=== PATIENT | male | born 1975 | race Caucasian/White ===

== ENCOUNTER 2018-06-16 15:52 | Emergency (ER) | payer MEDICARE, SELFPAY ==
[2018-06-16 15:54] VITALS: BP 129/83; PULSE 60; RESP 12; TEMP 36.4; O2SAT 100; BMI 26.8
--- NOTE | 2018-06-16 16:00 | RAD_ITS ---
STUDY: X-RAY CHEST REASON FOR EXAM: Male, 43 years old. Fall TECHNIQUE: Frontal view of the chest COMPARISON: None. FINDINGS: The lungs are clear. There are no pleural effusions. There is no pneumothorax. The heart is normal in size. The visualized osseous structures are within normal limits. RAD/Chest 1 View (Portable) IMPRESSION: No acute thoracic pathology. Electronically Signed: Wagner Barbosa, at 17:59 EST Tel , Service support ,
--- NOTE | 2018-06-16 16:00 | CT_ITS ---
STUDY: CT BRAIN WITHOUT CONTRAST REASON FOR EXAM: Male, 43 years old. Dizziness RADIATION DOSAGE (If Supplied By Facility): CTDIvol = ( 44.99 ) mGy, DLP = ( 880.47 ) mGycm TECHNIQUE: Transaxial CT imaging of the brain was performed without administration of intravenous contrast material. Individualized dose optimization techniques were used for this CT. COMPARISON: None. FINDINGS: There is no acute bleed or infarct. There are normal white matter tracts. The ventricles are normal in configuration. There is no hydrocephalus. The visualized paranasal sinuses are clear. The mastoid air cells are well aerated. There is no skull fracture. CT/Brain/Head without Contrast IMPRESSION: No acute intracranial abnormality. Electronically Signed: Wagner Barbosa, at 17:38 EST Tel , Service support ,
--- NOTE | 2018-06-16 16:00 | RAD_ITS ---
STUDY: X-RAY - PELVIS REASON FOR EXAM: Male, 43 years old. Fall TECHNIQUE: One view of the pelvis was obtained. COMPARISON: None. FINDINGS: There is no evidence of fracture or dislocation. There are no significant degenerative changes. There are no radiodense foreign bodies. RAD/Pelvis 1 or 2 Views IMPRESSION: No fracture or dislocation. Electronically Signed: Wagner Barbosa, at 17:58 EST Tel , Service support ,
--- NOTE | 2018-06-16 16:00 | CT_ITS ---
STUDY: CT CERVICAL SPINE WITHOUT CONTRAST REASON FOR EXAM: Male, 43 years old. Fall RADIATION DOSAGE (If Supplied By Facility): CTDIvol = ( 26.51 ) mGy, DLP = ( 571.04 ) mGycm TECHNIQUE: High resolution transaxial imaging was performed without contrast material. Sagittal and coronal images were reconstructed. Individualized dose optimization techniques were used for this CT. COMPARISON: None available. FINDINGS: There is no evidence of fracture or dislocation in the cervical spine. The dens is intact. Alignment is normal. The vertebral body heights are well-maintained. There are mild degenerative changes. The visualized paraspinal soft tissues are within normal limits. CT/Spine Cervical without Contras IMPRESSION: No fracture or dislocation in the cervical spine. Mild degenerative changes. Electronically Signed: Wagner Barbosa, at 17:49 EST Tel , Service support ,
--- NOTE | 2018-06-16 16:01 | EKG12_ITS ---
Test Reason : UNRESPONSIVE Blood Pressure : / mmHG Vent. Rate : 054 BPM Atrial Rate : 054 BPM P-R Int : 176 ms QRS Dur : 086 ms QT Int : 446 ms P-R-T Axes : 042 004 014 degrees QTc Int : 422 ms Sinus bradycardia Otherwise normal ECG Confirmed by MARGARET ORLANDO, SAM ([id number]), editor greeting card ELI RENEE ([id number]) on 06/19/2018 2:28:36 PM Referred By: THEODORA Confirmed By:SAM ROBLES MD
[2018-06-16 17:06] LABS: Absolute Lymphocyte Count 1.47 X10^3/ul (0.83-4.51); Absolute Neutrophil Count 3.1 X10^3/uL (2.0-7.7); Basophil# 0.03 X10^3/uL; Basophil% 0.5 % (0-1); Eosinophil# 0.34 X10^3/uL; Eosinophils% 6.1 % (0-5); Hematocrit 43.8 % (40-54); Lymphocyte # 1.47 X10^3/ul (4.0); Lymphocyte % 26.3 % (19-41); Mean Corp Hgb Conc 34.2 g/gl (32-36); Mean Corpuscular Hgb 33.3 pg (27.0-32.0); Mean Corpuscular Volume 97.1 fL (80-94); Mean Platelet Vol. 8.6 fl (6.2-12.0); Monocyte% 12.5 % (0-10); Neutrophil # 3.05 X10^3/uL (2.7-7.7); Neutrophil % 54.4 % (47-70); POSITIVE COUNT NO; POSITIVE DIFFERENTIAL NO; POSITIVE MORPHOLOGY NO; Platelet Count 192 K/mm3 (150-450); RBC Distribution Width CV 12.8 % (11.6-14.6); RBC Distribution Width SD 45.2 fl (35.1-43.9); Red Blood Count 4.51 M/mm3 (4.6-6.2); White Blood Count 5.6 K/mm3 (4.4-11.0)
[2018-06-16] MEDS: Diphth,Pertuss(Acell),Tet Vac 0.5 ML Vial IM (17:13)
[2018-06-16] MEDS: 0.9% Normal Saline 1,000 ML 1000 ML IV (17:14)
[2018-06-16 17:24] LABS: Prothrombin Time (Protime)PT. 13.3 SECONDS (11.7-14.9)
[2018-06-16 17:25] VITALS: BP 119/84; PULSE 62; RESP 20; O2SAT 98
[2018-06-16 17:25] LABS: Partial Thromboplast Time 28.1 Seconds (24.1-36.2)
[2018-06-16 17:37] LABS: ALB/GLOB Ratio 1.1 RATIO (0.9-2.4); AST(SGOT) 37 U/L (15-37); Alanine Aminotransfer ALT/SGPT 34 U/L (16-61); Albumin, Serum 3.8 g/dL (3.2-5.0); Alkaline Phosphatase 72 U/L (45-117); Anion Gap 9 (5-15); BUN 11 mg/dL (7-18); BUN/Creat Ratio 9.9 RATIO (10-20); Calcium,Total 8.3 mg/dL (8.5-10.1); Chloride 102 mmol/L (98-107); Creatinine, Serum 1.11 mg/dL (0.70-1.30); EST Glomerular Filtration Rate 77 mL/min (>60); Est Glom Filt Rate - Afr Amer 93 mL/min (>60); Estimated Creatinine Clearance 93.21 ml/min; Globulin 3.4 g/dL (2.2-4.2); Glucose 86 mg/dL (74-106); Lipase 175 U/L (73-393); Potassium 3.9 mmol/L (3.5-5.1); Protein, Total 7.2 g/dL (6.4-8.2); Sodium Level 135 mmol/L (136-145)
[2018-06-16] MEDS: Ketorolac 15 MG/ML Vial IV (18:37)
--- NOTE | 2018-06-16 18:45 | ED.VISSUMM ---
- ER Visit Summary Date of Service: 06/16/18 Chief Complaint: Fall History of Present Illness: The patient is a 43 M here by EMS after a fall. The patient had been drinking today. He had 6 of 12 ounce beers plus 6 tallboys. He was also using marijuana today. He fell forward and hit his head on a table. He sustained a laceration to his left eyebrow. He briefly lost consciousness. EMS was called. He was minimally responsive. They tried Narcan, but had no response. He had no other changes in route to the ED. On arrival, he is complaining of a headache. He denies any other pain or symptoms. He has a history of alcoholism and pancreatitis. Also a history of splenectomy. Smoker. Uses marijuana. Denies any other drug use. Physical Examination: Afebrile and vital signs unremarkable. The patient is alert to verbal stimuli. He will follow commands and he is able to speak some. Head is atraumatic except for a 2 cm laceration at his left eyebrow. Neck is nontender. Maintained in spinal precautions. Heart regular. Lungs clear. Abdomen soft and nontender. Back is nontender. Extremities atraumatic and nontender. Good strength and sensation. Neurovascularly intact. Test Results: CT brain and C-spine showed no acute findings. Chest x-ray and pelvis x-ray were normal. EKG showed sinus rhythm at a rate of 54. Troponin normal. Blood counts, metabolic panel, lipase, coags normal. Alcohol level 164. Emergency Department Course and Treatment: Patient was seen immediately. Evaluated for intoxication, trauma, and possible syncope. His workup here was unremarkable. He remained hemo-dynamically stable. He complained of a headache but had no other pains or symptoms. No vomiting. We were able to clear his c-collar. He was able to ambulate without difficulty or assistance. He was treated with Toradol. We updated his tetanus status. Dr. Tomlinson sutured his facial laceration. 5 sutures placed. Patient tolerated this well. Follow-up in a week for removal. Return for any new or worsening issues. Treatment Plan: As above Disposition: Discharge Impression: 1. Fall 2. Concussion 3. Alcohol use 4. Face laceration 2 cm This note was generated with [employer] dictation software. It may contain incorrect words, spelling, and punctuation that were not noted in review of the chart prior to signing ED Disposition - Plan for ED Patient: Chief Complaint: Fall Referrals: Evan Hilario MD [Primary Care Provider] -
--- NOTE | 2018-06-16 18:50 | ED.DCSUM_ITS ---
- ER Visit Summary Date of Service: 06/16/18 Chief Complaint: Fall History of Present Illness: The patient is a 43 M here by EMS after a fall. The patient had been drinking today. He had 6 of 12 ounce beers plus 6 tallboys. He was also using marijuana today. He fell forward and hit his head on a table. He sustained a laceration to his left eyebrow. He briefly lost consciousness. EMS was called. He was minimally responsive. They tried Narcan, but had no response. He had no other changes in route to the ED. On arrival, he is complaining of a headache. He denies any other pain or symptoms. He has a history of alcoholism and pancreatitis. Also a history of splenectomy. Smoker. Uses marijuana. Denies any other drug use. Physical Examination: Afebrile and vital signs unremarkable. The patient is alert to verbal stimuli. He will follow commands and he is able to speak some. Head is atraumatic except for a 2 cm laceration at his left eyebrow. Neck is nontender. Maintained in spinal precautions. Heart regular. Lungs clear. Abdomen soft and nontender. Back is nontender. Extremities atraumatic and nontender. Good strength and sensation. Neurovascularly intact. Test Results: CT brain and C-spine showed no acute findings. Chest x-ray and pelvis x-ray were normal. EKG showed sinus rhythm at a rate of 54. Troponin normal. Blood counts, metabolic panel, lipase, coags normal. Alcohol level 164. Emergency Department Course and Treatment: Patient was seen immediately. Evaluated for intoxication, trauma, and possible syncope. His workup here was unremarkable. He remained hemo-dynamically stable. He complained of a headache but had no other pains or symptoms. No vomiting. We were able to clear his c- collar. He was able to ambulate without difficulty or assistance. He was treated with Toradol. We updated his tetanus status. Dr. Tomlinson sutured his facial laceration. 5 sutures placed. Patient tolerated this well. Follow-up in a week for removal. Return for any new or worsening issues. Treatment Plan: As above Disposition: Discharge Impression: 1. Fall 2. Concussion 3. Alcohol use 4. Face laceration 2 cm This note was generated with [employer] dictation software. It may contain incorrect words, spelling, and punctuation that were not noted in review of the chart prior to signing ED Disposition - Plan for ED Patient: Chief Complaint: Fall Referrals: Evan Hilario MD [Primary Care Provider] -
--- NOTE | 2018-06-16 18:50 | ED.DEP ---
ED Disposition - Plan for ED Patient: Chief Complaint: Fall Instructions: ED Fall Uncertain Cause, ED Laceration All Referrals: Evan Hilario MD [Primary Care Provider] - 7 Days for suture removal
== END 2018-06-16 18:56 | disposition home or self-care (01) ==
PROVIDERS: Emergency Provider Emergency Medicine; Family Provider Family Medicine; PCP Family Medicine
DX: S06.0X9A Concussion with loss of consciousness of unspecified duration, initial encounter (principal); S01.112A Laceration without foreign body of left eyelid and periocular area, initial encounter; W19.XXXA Unspecified fall, initial encounter; Y93.89 Activity, other specified; K85.90 Acute pancreatitis without necrosis or infection, unspecified; F12.90 Cannabis use, unspecified, uncomplicated; F17.200 Nicotine dependence, unspecified, uncomplicated; Z72.89 Other problems related to lifestyle; Z79.899 Other long term (current) drug therapy
CPT/HCPCS: 12011; 36415; 70450; 71045; 72125; 72170; 80053; 80320; 83690; 84484; 85025; 85610; 85730; 90471; 90715; 93005; 96361; 96374; 99285; J7030; A4216; G0480

== ENCOUNTER 2021-03-01 16:25 | Inpatient (IN) | payer OTHER, MEDICARE, SELFPAY ==
[2021-03-01 16:26] VITALS: BP 142/85; PULSE 122; RESP 16; TEMP 36.7; O2SAT 96; BMI 24.5
[2021-03-01 18:48] VITALS: BP 180/74; PULSE 94; RESP 16; TEMP 36.6; O2SAT 98
[2021-03-01] MEDS: Phenobarbital 32.4 MG Tablet 97.2 MG PO (18:54)
[2021-03-01 19:02] LABS: Absolute Lymphocyte Count 1.62 X10^3/uL (0.83-4.51); Absolute Neutrophil Count 2.2 X10^3/uL (2.0-7.7); Basophil# 0.03 X10^3/uL; Basophil% 0.6 % (0-1); Eosinophil# 0.17 X10^3/uL; Eosinophils% 3.5 % (0-5); Hematocrit 45.8 % (40-54); Hemoglobin 15.9 g/dL (13.0-16.5); Lymphocyte # 1.62 X10^3/ul (0.83-4.51); Lymphocyte % 33.4 % (19-41); Mean Corp Hgb Conc 34.7 g/dL (32-36); Mean Corpuscular Hgb 34.5 pg (27.0-32.0); Mean Corpuscular Volume 99.3 fL (80-94); Mean Platelet Vol. 8.8 fl (6.2-12.0); Monocyte# 0.79 X10^3/uL; Monocyte% 16.3 % (0-10); NRBC Flagged by Analyzer 0 % (0-5); Neutrophil # 2.23 X10^3/uL (2.7-7.7); Platelet Count 229 K/mm3 (150-450); RBC Distribution Width CV 12.7 % (11.6-14.6); RBC Distribution Width SD 46.6 fl (35.1-43.9); Red Blood Count 4.61 M/mm3 (4.6-6.2); White Blood Count 4.9 K/mm3 (4.4-11.0)
[2021-03-01 19:26] LABS: ALB/GLOB Ratio 1.1 RATIO (0.9-2.4); AST(SGOT) 71 U/L (15-37); Alanine Aminotransfer ALT/SGPT 51 U/L (16-61); Albumin, Serum 3.9 g/dL (3.2-5.0); Alkaline Phosphatase 74 U/L (45-117); Anion Gap 10 (5-15); BUN 7 mg/dL (7-18); BUN/Creat Ratio 5.6 RATIO (10-20); Calcium,Total 9.3 mg/dL (8.5-10.1); Chloride 102 mmol/L (98-107); Creatinine, Serum 1.25 mg/dL (0.70-1.30); EST Glomerular Filtration Rate 66 mL/min (>60); Est Glom Filt Rate - Afr Amer 80 mL/min (>60); Estimated Creatinine Clearance 83.45 ml/min; Globulin 3.6 g/dL (2.2-4.2); Glucose 89 mg/dL (74-106); Potassium 3.4 mmol/L (3.5-5.1); Protein, Total 7.5 g/dL (6.4-8.2); Sodium Level 139 mmol/L (136-145)
[2021-03-01 19:34] LABS: Amphetamine Urine VISTA NEGATIVE (<1000 ng/mL); Barbiturate Urine VISTA NEGATIVE (< 200 ng/mL); Benzodiazepine Urine VISTA NEGATIVE (< 200 ng/mL); Cocaine Urine VISTA NEGATIVE (< 300 ng/mL); Ecstacy Urine VISTA NEGATIVE (< 500 ng/mL); Methadone Urine VISTA NEGATIVE (< 300 ng/mL); PCP Urine VISTA NEGATIVE (< 25 ng/mL); THC Urine VISTA POSITIVE (< 50 ng/mL); Vista UDS pH Range 6
--- NOTE | 2021-03-01 19:35 | CM.ED ---
ALDAIR Note Referral Source: BENNIE CH Referral Reason: RAMP ALDAIR met with patient. He voiced that he has been drinking alot of alcohol. Patient reports drinking over a case a day.. more lately and smoking marijuana a couple times per week. Patient reports smoking 2 joints a week. Patient last smoked marijuana at 7am and began to use alcohol at 6am this morning when the [employer] sold it. Patient is in agreement with the RAMP program. SW explained that Addiction Counselor/Therapist would follow up with patient tomorrow. ALDAIR called More at [facility]. Made referral regarding patient being admitted to RAMP program. Plan: RAMP program Rachael SMITH
--- NOTE | 2021-03-01 19:39 | EDS_ITS ---
HPI History of Present Illness Chief Complaint: ETOH Intox Narrative Narrative: Patient presenting for evaluation secondary to alcohol dependence and requesting detox. Patient states that he has been in touch with [facility], and they told him that he likely would need to go through a detox program. Patient states that he has had a longstanding issue with alcohol dependency. Patient states that he typically will drink around a case of beer a day, towards the end of the day states that he will get significantly tremulous before he starts drinking again. Patient denies that he had withdrawal seizures. Denies being suicidal or homicidal. Patient does state that he uses marijuana, denies any other illicit substance use. Review of systems otherwise negative. PFSH PFS Medical History Alcohol abuse Home Medications NK 03/01/21 [History Last Taken Unknown] Allergy/AdvReac Type Severity Reaction Status Date / Time aspirin AdvReac PT HAS NO Verified 03/01/21 16:30 SPLEEN Social History Smoking Status: Current every day smoker tobacco type: cigarettes ROS ROS ED Constitutional Constitutional ED: Denies chills, fever(s) or weight loss Eyes Eyes: Denies change in vision ENT ENT ED: Denies rhinorrhea or sore throat Cardiovascular Cardiovascular: Denies chest pain Respiratory/Chest Respiratory/Chest: Denies cough Gastrointestinal Gastrointestinal: Denies abdominal pain, constipation, diarrhea, nausea or vomiting Genitourinary Genitourinary ED: Denies dysuria Musculoskeletal Musculoskeletal: Denies myalgias Integumentary Denies rash Neurologic Neurologic: Denies paresthesias or weakness Psychiatric Psychiatric: Reports other Details: Alcohol dependence Endocrine Endocrinology: Denies polydipsia or polyuria Hematologic/Lymphatic Hematologic/Lymphatic: Denies easy bleeding or easy bruising Allergic/Immunologic Allergic/Immunologic ED: Denies urticaria EXAM Physical Exam Const Vital Signs: 03/01/21 16:26 03/01/21 18:48 Temperature 98.1 F 97.9 F Temperature Source Temporal Temporal Pulse Rate 122 H 94 Respiratory Rate 16 16 Blood Pressure 142/85 H 180/74 H Blood Pressure Mean 104 109 Blood Pressure Source Monitor Blood Pressure Location Right Arm Pulse Ox 96 98 Oxygen Delivery Method Room Air Room Air Positive well nourished and well developed General Appearance ED: well developed and NAD HEENT atraumatic; Negative for tenderness Eyes EOMs intact bilaterally General Eye ED: Negative for pale conjunctiva or scleral icterus Neck no lymphadenopathy and supple Chest Wall inspection of chest normal Resp normal respiratory effort and clear to auscultation bilaterally Cardio regular rate, regular rhythm, no murmurs and peripheral pulses 2+ throughout GI soft to palpation, non-tender, non-distended and no masses Extremity General Extremety ED: Negative for edema or tenderness General Extremity: Negative for edema Neuro oriented x3 and no sensory deficits noted Sensorium / Orientation: alert Motor Exam: strength 5/5 throughout Psych mental status grossly normal Psych Narrative: No suicidal homicidal ideations, no signs of hallucinations Skin Lesions: no lesions Rashes: no rashes MDM MDM MDM Narrative Medical decision making narrative: Patient presented secondary to alcohol dependence. He was given phenobarb in the emergency department. Alcohol was found to be just over 100, patient screening labs were found to be grossly unremarkable. Toxicology screen was only positive for cannabinoids. Will discuss patient with the hospitalist for admission for alcohol detox. Lab Data Labs: Laboratory Results - last 24 hr 03/01/21 03/01/21 03/01/21 18:35 18:45 18:45 WBC 4.9 RBC 4.61 Hgb 15.9 Hct 45.8 MCV 99.3 H MCH 34.5 H MCHC 34.7 RDW Std Deviation 46.6 H RDW Coeff of Minerva 12.7 Plt Count 229 MPV 8.8 Immature Gran % (Auto) 0.200 Neut % (Auto) 46.0 L Lymph % (Auto) 33.4 Wallace % (Auto) 16.3 H Eos % (Auto) 3.5 Baso % (Auto) 0.6 Absolute Neuts (auto) 2.2 Absolute Lymphs (auto) 1.62 Nucleated RBC % 0 Sodium 139 Potassium 3.4 L Chloride 102 Carbon Dioxide 27.0 Anion Gap 10 BUN 7 Creatinine 1.25 Estim Creat Clear Calc 83.45 Est GFR (MDRD) Af Amer 80 Est GFR (MDRD) Non-Af 66 BUN/Creatinine Ratio 5.6 L Glucose 89 Calcium 9.3 Total Bilirubin 1.20 H AST 71 H ALT 51 Alkaline Phosphatase 74 Total Protein 7.5 Albumin 3.9 Globulin 3.6 Albumin/Globulin Ratio 1.1 Urine Opiates Screen NEGATIVE Urine Methadone Screen NEGATIVE Ur Barbiturates Screen NEGATIVE Ur Phencyclidine Scrn NEGATIVE Ur Amphetamines Screen NEGATIVE U Methamphetamin-MDMA NEGATIVE U Benzodiazepines Scrn NEGATIVE Urine Cocaine Screen NEGATIVE U Cannabinoids Screen POSITIVE H Ur Drug Screen Comment Ethyl Alcohol 03/01/21 18:45 WBC RBC Hgb Hct MCV MCH MCHC RDW Std Deviation RDW Coeff of Minerva Plt Count MPV Immature Gran % (Auto) Neut % (Auto) Lymph % (Auto) Wallace % (Auto) Eos % (Auto) Baso % (Auto) Absolute Neuts (auto) Absolute Lymphs (auto) Nucleated RBC % Sodium Potassium Chloride Carbon Dioxide Anion Gap BUN Creatinine Estim Creat Clear Calc Est GFR (MDRD) Af Amer Est GFR (MDRD) Non-Af BUN/Creatinine Ratio Glucose Calcium Total Bilirubin AST ALT Alkaline Phosphatase Total Protein Albumin Globulin Albumin/Globulin Ratio Urine Opiates Screen Urine Methadone Screen Ur Barbiturates Screen Ur Phencyclidine Scrn Ur Amphetamines Screen U Methamphetamin-MDMA U Benzodiazepines Scrn Urine Cocaine Screen U Cannabinoids Screen Ur Drug Screen Comment Ethyl Alcohol 108.0 Discharge Plan Triage Chief Complaint: ETOH Intox ED Provider: Masoud Burris Dx/Rx/DC Orders Clinical Impression: Alcohol dependence Prescriptions: No Action NK RF: 0 Primary Care Provider: Evan Hilario Referrals: Evan Hilario MD [Primary Care Provider] - Disposition Disposition: Acute Care Hospital [facility]
--- NOTE | 2021-03-01 20:02 | HP.PCM.HOS_ITS ---
HPI - General General Date of Admission: 03/01/21 HPI Narrative ADRIA AREVALO, is a 45 M with a significant history of alcoholism; hepatitis C; cirrhosis; and esophageal varices who presents to the emergency department with help with alcohol detoxification. Reportedly patient drinks about a case of beer per day. He called to [facility] and he was referred to the hospital for detoxification. Patient reports that last time he drank was few hours before presentation. He reports withdrawal symptoms of shakiness. He denies any nausea and vomiting and stated typically that follows with his withdrawal. Last time he went to alcohol withdrawal program was about 4 to 5 years ago. [facility] Medical History Alcohol abuse Home Medications NK 03/01/21 [History Last Taken Unknown] Allergy/AdvReac Type Severity Reaction Status Date / Time aspirin AdvReac PT HAS NO Verified 03/01/21 16:30 SPLEEN Family History Other Diabetes Surgical History H/O splenectomy Social History Smoking Status: Unknown if ever smoked substance use type: marijuana ROS ROS Narrative Constitutional: Denies anorexia and change in weight Eyes: Denies blurry vision, change in eye color, change in vision, discharge from eye(s), double vision, erythema, eye pain, loss of vision or other HEENT: Denies abnormal hearing, dysphagia, ear pain, epistaxis, headache(s), hearing loss, nasal congestion, nasal discharge, post nasal drip, sinus press ure, sore throat or other Cardiovascular: Denies chest pain or palpitations. Denies dyspnea on exertion, orthopnea and paroxysmal nocturnal dyspnea Respiratory/Chest: Denies cough, excessive phlegm production, shortness of breath with exertion and wheezing Gastrointestinal: Denies abdominal pain, coffee ground emesis, constipation, diarrhea, dyspepsia, hematemesis, hematochezia, loose stools, melena, nausea, vomiting or other Genitourinary: Denies burning urination, difficulty urinating, dysuria, hematuria, nocturia, urinary frequency, urinary hesitancy, urinary incontinence, urinary urgency or other Musculoskeletal: Denies arthralgias, back pain, joint pain, joint stiffness, joint swelling, myalgias, neck pain or other Neurologic: Reports tremors. Denies abnormal gait, abnormal speech, confusion, disequilibrium, dizziness, focal weakness, headache(s), numbness, paresthesias, seizure-like activity, seizures, syncope, tingling, or other Psychiatric: Reports anxiety. Denies depression, homicidal ideation, suicidal ideation or other Endocrinology: Denies change in body appearance, cold intolerance, excessive sweating, heat intolerance, polydipsia, polyuria or other Hematologic/Lymphatic: Denies anemia, easy bleeding, easy bruising, lymphadenopathy or other Integumentary: Denies rashes Allergic/Immunologic: Denies rhinitis, hives, eczema, asthma or other Vital Signs Vital Signs Vital Signs: 03/01/21 16:26 03/01/21 18:48 Temperature 98.1 F 97.9 F Temperature Source Temporal Temporal Pulse Rate 122 H 94 Respiratory Rate 16 16 Blood Pressure 142/85 H 180/74 H Blood Pressure Mean 104 109 Blood Pressure Source Monitor Blood Pressure Location Right Arm Pulse Ox 96 98 Oxygen Delivery Method Room Air Room Air Weight Weight: 84.368 kg Body Mass Index (BMI) 24.5 Physical Exam Narrative Physical exam: General: Well-nourished, well-developed. Head: Normocephalic, atraumatic, no tenderness Eyes: PERRLA, EOMI ENT, no trauma, moist mucous membranes, no rhinorrhea Neck: Nontender, full range of motion, no spinal tenderness, deformities, step- off CVS: Regular rate and rhythm. S1-S2 present. No murmur, gallop or rub. Respiratory : clear to auscultation bilaterally, chest wall nontender, no wheezing Abdomen: Soft, nontender, nondistended, normal bowel sounds, no masses : Deferred Back: Nontender, no CVA tenderness, no midline spinal tenderness, deformities, step-offs Extremities: Nontender full range of motion, no trauma Skin: Normal color, no trauma, abrasions Neuro: Alert, oriented, cranial nerves II through XII grossly intact. Psychiatry: Normal mood. Normal affect. Not depressed. Not anxious. Results Lab / Micro Data Result Diagrams: 03/01/21 18:45 03/01/21 18:45 Labs: Laboratory Results - last 24 hr 03/01/21 18:35: Urine Opiates Screen NEGATIVE, Urine Methadone Screen NEGATIVE, Ur Barbiturates Screen NEGATIVE, Ur Phencyclidine Scrn NEGATIVE, Ur Amphetamines Screen NEGATIVE, U Methamphetamin-MDMA NEGATIVE, U Benzodiazepines Scrn NEGATIV E, Urine Cocaine Screen NEGATIVE, U Cannabinoids Screen POSITIVE H, Ur Drug S creen Comment 03/01/21 18:45: WBC 4.9, RBC 4.61, Hgb 15.9, Hct 45.8, MCV 99.3 H, MCH 34.5 H, MCHC 34.7, RDW Std Deviation 46.6 H, RDW Coeff of Minerva 12.7, Plt Count 229, MPV 8.8, Immature Gran % (Auto) 0.200, Neut % (Auto) 46.0 L, Lymph % (Auto) 33.4, [place] % (Auto) 16.3 H, Eos % (Auto) 3.5, Baso % (Auto) 0.6, Absolute Neuts (auto) 2.2, Absolute Lymphs (auto) 1.62, Nucleated RBC % 0 03/01/21 18:45: Sodium 139, Potassium 3.4 L, Chloride 102, Carbon Dioxide 27.0, Anion Gap 10, BUN 7, Creatinine 1.25, Estim Creat Clear Calc 83.45, Est GFR (MDRD) Af Amer 80, Est GFR (MDRD) Non-Af 66, BUN/Creatinine Ratio 5.6 L, Glucose 89, Calcium 9.3, Total Bilirubin 1.20 H, AST 71 H, ALT 51, Alkaline Phosphatase 74, Total Protein 7.5, Albumin 3.9, Globulin 3.6, Albumin/Globulin Ratio 1.1 03/01/21 18:45: Ethyl Alcohol 108.0 Assessment & Plan Assessment/Plan (1) Desire for detoxification: (2) Alcoholism: PLAN: Alcohol dependence and desire for detoxification Patient was loaded with phenobarbital at the emergency department. While inpatient will continue phenobarbital. Start other adjunctive medications: Gabapentin as needed; dicyclomine as needed; Vistaril as needed; Imodium as needed; trazodone as needed; Zofran as needed; scheduled thiamine; and schedule folic acid. Monitor CIWA score Marijuana abuse Counselled Hypokalemia Review of medical department labs potassium of 3.4, mild. Check magnesium. Elevated blood pressure a diagnosis of hypertension Trend blood pressures for now. DVT prophylaxis Low risk Encourage to ambulate Charges/Coding Visit Charges Inpatient E&M: 22135 Init Hosp L2
[2021-03-01 20:03] VITALS: BP 122/98; PULSE 93; RESP 16; TEMP 36.9; O2SAT 98
[2021-03-01 20:16] VITALS: BP 122/98; PULSE 93; RESP 16; TEMP 36.9; O2SAT 96
[2021-03-01 20:54] VITALS: BMI 24.3
[2021-03-01 21:04] VITALS: BP 141/88; PULSE 98; RESP 18; TEMP 36.8; O2SAT 94
[2021-03-01] MEDS: traZODone 100 MG Tablet PO (21:25)
[2021-03-01] MEDS: Gabapentin 300 MG Capsule PO (21:25)
[2021-03-01] MEDS: hydrOXYzine PAM 25 MG Capsule 50 MG PO (21:25)
[2021-03-01] MEDS: Phenobarbital 32.4 MG Tablet 64.8 MG PO (22:25)
[2021-03-01 22:48] LABS: Magnesium 2.2 mg/dL (1.6-2.6)
--- NOTE | 2021-03-01 23:31 | PCS.PANDOC ---
PANDEMIC DOCUMENTATION INITIATED: Date: 01/31/2021 Time: 190
[2021-03-02] VITALS (7 sets, daily range): BP systolic 123–130; BP diastolic 79–95; PULSE 74–95; RESP 14–18; TEMP 36.6–36.9; O2SAT 93–98
[2021-03-02] MEDS: Phenobarbital 32.4 MG Tablet 64.8 MG PO ×6 (02:21→22:19)
[2021-03-02] MEDS: Thiamine Hydrochloride 100 MG Tablet PO (06:16)
[2021-03-02] MEDS: Folic Acid 1 MG Tablet PO (06:16)
--- NOTE | 2021-03-02 11:16 | ADDICTION ---
his clinical writer met with PT to conduct ASAM, MSE, AUDIT assessments and to plan for d/c. PT A+Ox4 and participated actively. All assessments completed, faxed to [facility] and placed in PT's chart. PT plans to f/u with residential and counseling services. This worker will work on placement that will accept clients insurance. PT did not indicate a need for transportation post d/c from [facility].
--- NOTE | 2021-03-02 14:09 | PN.HOSP_ITS ---
Subjective Subjective Feels generally ill. Complains of malaise and myalgias and tremors. This is all consistent with his prior history of alcohol withdrawal. Objective Data Objective Data Vital Signs: Vital Signs Temp Pulse Resp BP Pulse Ox 36.9 C 81 16 130/93 H 95 03/02/21 10:34 03/02/21 10:34 03/02/21 10:34 03/02/21 10:34 03/02/21 10:34 Oxygen Delivery Method Room Air Weight: 83.8 kg Body Mass Index (BMI) 24.3 Intake & Output: Intake and Output for Last 24 Hours 02/28/21 03/01/21 03/02/21 23:59 23:59 23:59 Intake Total 360 / 360 Balance 360 / 360 Lab / Micro Data Result Diagrams: 03/01/21 18:45 03/01/21 18:45 Labs: Laboratory Results - last 24 hr 03/01/21 18:35: Urine Opiates Screen NEGATIVE, Urine Methadone Screen NEGATIVE, Ur Barbiturates Screen NEGATIVE, Ur Phencyclidine Scrn NEGATIVE, Ur Amphetamines Screen NEGATIVE, U Methamphetamin-MDMA NEGATIVE, U Benzodiazepines Scrn NEGATIVE, Urine Cocaine Screen NEGATIVE, U Cannabinoids Screen POSITIVE H, Ur Drug Screen Comment 03/01/21 18:45: WBC 4.9, RBC 4.61, Hgb 15.9, Hct 45.8, MCV 99.3 H, MCH 34.5 H, MCHC 34.7, RDW Std Deviation 46.6 H, RDW Coeff of Minerva 12.7, Plt Count 229, MPV 8.8, Immature Gran % (Auto) 0.200, Neut % (Auto) 46.0 L, Lymph % (Auto) 33.4, [place] % (Auto) 16.3 H, Eos % (Auto) 3.5, Baso % (Auto) 0.6, Absolute Neuts (auto) 2.2, Absolute Lymphs (auto) 1.62, Nucleated RBC % 0 03/01/21 18:45: Sodium 139, Potassium 3.4 L, Chloride 102, Carbon Dioxide 27.0, Anion Gap 10, BUN 7, Creatinine 1.25, Estim Creat Clear Calc 83.45, Est GFR (MDRD) Af Amer 80, Est GFR (MDRD) Non-Af 66, BUN/Creatinine Ratio 5.6 L, Glucose 89, Calcium 9.3, Total Bilirubin 1.20 H, AST 71 H, ALT 51, Alkaline Phosphatase 74, Total Protein 7.5, Albumin 3.9, Globulin 3.6, Albumin/Globulin Ratio 1.1 03/01/21 18:45: Ethyl Alcohol 108.0 03/01/21 18:45: Magnesium 2.2 Physical Exam Const alert Resp normal respiratory effort, no retractions, no use of accessory muscles and clear to auscultation bilaterally Cardio regular rate, regular rhythm, S1 normal heart sound and S2 normal heart sound GI normal to inspection, nondistended, normoactive bowel sounds, soft to palpation, non-tender and non-distended Assessment & Plan Assessment/Plan (1) Desire for detoxification: (2) Alcoholism: PLAN: Alcohol dependence and desire for detoxification Patient was loaded with phenobarbital at the emergency department. While inpatient will continue phenobarbital. Start other adjunctive medications: Gabapentin as needed; dicyclomine as needed; Vistaril as needed; Imodium as needed; trazodone as needed; Zofran as needed; scheduled thiamine; and schedule folic acid. Monitor CIWA score Overall, patient stable. No evidence delirium tremens at this time. Marijuana abuse Counselled Ongoing use will complicate the patient's desire for sobriety Hypokalemia Review of medical department labs potassium of 3.4, mild. Check magnesium. Elevated blood pressure a diagnosis of hypertension Trend blood pressures for now. DVT prophylaxis Low risk Encourage to ambulate Charges/Coding Visit Charges Inpatient E&M: 82230 Subs Hosp L2
[2021-03-02] MEDS: traZODone 100 MG Tablet PO (22:19)
[2021-03-03] VITALS (8 sets, daily range): BP systolic 115–134; BP diastolic 82–86; PULSE 65–80; RESP 14–18; TEMP 35.9–36.6; O2SAT 93–98
[2021-03-03] MEDS: Phenobarbital 32.4 MG Tablet 64.8 MG PO ×5 (02:24→21:32)
[2021-03-03] MEDS: Thiamine Hydrochloride 100 MG Tablet PO (06:11)
[2021-03-03] MEDS: Folic Acid 1 MG Tablet PO (06:11)
[2021-03-03] MEDS: Gabapentin 300 MG Capsule PO ×2 (10:40→21:33)
[2021-03-03] MEDS: Dicyclomine 10 MG Capsule 20 MG PO ×2 (10:40→21:35)
--- NOTE | 2021-03-03 13:24 | PCM.PN.HOSP ---
Subjective Subjective Feels better. Walking in halls. walks to keep his mind off alcohol. He wants to follow up with IOP. Objective Data Objective Data Vital Signs: Vital Signs Temp Pulse Resp BP Pulse Ox 35.9 C L 73 18 115/82 H 98 03/03/21 10:37 03/03/21 10:37 03/03/21 10:37 03/03/21 10:37 03/03/21 10:37 Oxygen Delivery Method Room Air Weight: 83.8 kg Body Mass Index (BMI) 24.3 Intake & Output: Intake and Output for Last 24 Hours 03/01/21 03/02/21 03/03/21 23:59 23:59 23:59 Intake Total 360 / 360 Balance 360 / 360 Lab / Micro Data Result Diagrams: 03/01/21 18:45 03/01/21 18:45 Physical Exam Const alert Resp normal respiratory effort, no retractions, no use of accessory muscles and clear to auscultation bilaterally Cardio regular rate, regular rhythm, S1 normal heart sound and S2 normal heart sound GI normal to inspection, nondistended, normoactive bowel sounds, soft to palpation, non-tender and non-distended Extremity normal to inspection Neuro Neuro Narrative: normal gait. Sensorium / Orientation: awake and alert Assessment & Plan Assessment/Plan (1) Desire for detoxification: (2) Alcoholism: PLAN: Alcohol dependence and desire for detoxification Patient was loaded with phenobarbital at the emergency department. While inpatient will continue phenobarbital. Start other adjunctive medications: Gabapentin as needed; dicyclomine as needed; Vistaril as needed; Imodium as needed; trazodone as needed; Zofran as needed; scheduled thiamine; and schedule folic acid. Monitor CIWA score Improving. Given appearance on 03/02, plan to watch overnight, and if improved, then DC home 03/04. Follow up with IOP. Marijuana abuse Counselled Ongoing use will complicate the patient's desire for sobriety Hypokalemia Review of medical department labs potassium of 3.4, mild. Check magnesium. Elevated blood pressure a diagnosis of hypertension Trend blood pressures for now. DVT prophylaxis Low risk Encourage to ambulate Charges/Coding Visit Charges Inpatient E&M: 75862 Subs Hosp L2
[2021-03-03] MEDS: traZODone 100 MG Tablet PO (21:33)
[2021-03-04] MEDS: Phenobarbital 32.4 MG Tablet 64.8 MG PO ×3 (00:04→06:31)
[2021-03-04 03:59] VITALS: BP 104/78; PULSE 59; RESP 16; TEMP 36.1; O2SAT 96
[2021-03-04 08:00] VITALS: BP 119/85; PULSE 76; RESP 18; TEMP 36.7; O2SAT 100
[2021-03-04] MEDS: Thiamine Hydrochloride 100 MG Tablet PO (08:07)
[2021-03-04] MEDS: Folic Acid 1 MG Tablet PO (08:07)
--- NOTE | 2021-03-04 08:35 | PCM.DC ---
Discharge Instructions Diet Discharge Diet: No restrictions Activity Discharge Activity: Return to Normal Activity Follow Up Care Please Follow Up With: [facility] therapy When: next week Test Results: Test results from this visit will be discussed in further detail at your follow-up appointment, if applicable. Discharge Plan Admission Admit Date/Time: 03/01/21 19:57 Primary Reason for Your Visit: alcohol withdrawal Attending Provider: Pablo Maguire Primary Care Provider: Evan Hilario Discharge Orders/Prescriptions Prescriptions: New Advanced Multi EA 22.5 mg-400 mcg -150 mcg-10 mg tablet,chewable 1 tab PO DAILY Qty: 1 RF: 0 Continued epinephrine 0.3 mg/0.3 mL auto-injector 0.3 mg IM X1 RF: 0 Referrals / Follow Up: Evan Hilario MD [Primary Care Provider] - Within 1 Month Disposition Disposition (needs filled in before D/C Order can be placed): Home, Self Care
--- NOTE | 2021-03-04 08:38 | PCM.DC.SUM ---
Providers Date of Admission: 03/01/21 Primary Care Physician: Dr. Evan Hilario MD Reason For Visit: ALCOHOL DEPENDENCE Diagnosis Discharge Diagnosis (1) Desire for detoxification: Status: Acute (2) Alcoholism: Status: Acute Code(s): F10.20 - Alcohol dependence, uncomplicated Medications at Discharge Home Medications epinephrine 0.3 mg IM X1 03/01/21 [id number] [Advanced Multi EA] 1 tab PO DAILY #1 tab 03/04/21 Hospital Course Operations None Procedures None Summary of Care Provided Minutes Spent on Discharge: 24 Hospital Course: 45-year-old male presents for acute alcohol withdrawal. Patient was having tremors, myalgias and malaise. Was very ill the first couple days but then on the was doing much better and was ambulating through the hallways. Patient was observed and had no further decompensation. Patient was treated with phenobarbital. Patient was seen by addiction medicine and the initial plan was for residential program however the patient was not interested in that and will be following up with [facility]. Patient is otherwise doing well and will be discharged. Of note, walked in the patient's room and he was try to get into his zip tied box to get a knife out of there so that he could pop some blisters. I looked at his feet and did have some superficial blisters but no evidence of any infection. I encouraged him not to open those up as this could become infected. Physical Exam Const alert and no apparent distress Skin Skin Narrative: Superficial blisters over the distal midportion of his foot without any erythema or discharge Weight / BMI Weight Weight: 83.8 kg Body Mass Index (BMI) 24.3 ABG / Lab / Microbiology Data Result Diagrams: 03/01/21 18:45 03/01/21 18:45 D/C Instructions Discharge Diet: No restrictions Please Follow Up With: [facility] When: next week Meaningful Use Info Meaningful Use Diagnoses (Choose all that apply): None applicable Discharge Plan Admission Admit Date/Time: 03/01/21 19:57 Primary Reason for Your Visit: alcohol withdrawal Attending Provider: Pablo Maguire Primary Care Provider: Evan Hilario Discharge Orders/Prescriptions Prescriptions: New Advanced Multi EA 22.5 mg-400 mcg -150 mcg-10 mg tablet,chewable 1 tab PO DAILY Qty: 1 RF: 0 Continued epinephrine 0.3 mg/0.3 mL auto-injector 0.3 mg IM X1 RF: 0 Referrals / Follow Up: Evan Hilario MD [Primary Care Provider] - Within 1 Month Disposition Disposition (needs filled in before D/C Order can be placed): Home, Self Care Charges/Coding Visit Charges Inpatient E&M: 71553 Disch Hosp
== END 2021-03-04 11:16 | disposition home or self-care (01) | DRG 897 ==
LOC: ED 19:41 → MS3 20:22
PROVIDERS: Admitting Provider Hospitalist; Emergency Provider Emergency Medicine; PCP Family Medicine
DX: F10.229 Alcohol dependence with intoxication, unspecified (principal); F10.239 Alcohol dependence with withdrawal, unspecified; F17.210 Nicotine dependence, cigarettes, uncomplicated; Y90.5 Blood alcohol level of 100-119 mg/100 ml; Z86.19 Personal history of other infectious and parasitic diseases; F12.10 Cannabis abuse, uncomplicated; I10 Essential (primary) hypertension; E87.6 Hypokalemia; S90.829A Blister (nonthermal), unspecified foot, initial encounter; X58.XXXA Exposure to other specified factors, initial encounter; Y93.9 Activity, unspecified; Y92.9 Unspecified place or not applicable
CPT/HCPCS: 80053; 80307; 82077; 83735; 85025; 99283; A4216

== ENCOUNTER 2023-09-15 16:44 | Emergency (ER) | payer MEDICARE, MEDICAID, SELFPAY ==
[2023-09-15 16:44] VITALS: BP 138/92; PULSE 119; RESP 20; TEMP 36.6; O2SAT 95; BMI 25.5
[2023-09-15 16:46] VITALS: BP 138/92; PULSE 119; RESP 20; TEMP 36.6; O2SAT 95
--- NOTE | 2023-09-15 17:07 | EDS_ITS ---
HPI <CHANDRAKANT Raphael - Last Filed: 09/15/23 20:29> History of Present Illness Chief Complaint: General Illness Narrative Narrative: Patient presenting today due to flulike symptoms he has had over the past week. He reports that he has had a productive cough, diarrhea, body aches, and fatigue. He has had a decreased appetite. He denies abdominal pain, nausea, vomiting, chest pain, and shortness of breath. He reports a past medical history of liver cirrhosis and esophageal varices. PFSH <CHANDRAKANT Raphael - Last Filed: 09/15/23 20:29> [facility] Medical History Alcohol abuse Alcohol dependence Alcoholism Depression Esophageal varices Portal vein thrombosis Home Medications epinephrine 0.3 mg/0.3 mL injection, auto-injector 0.3 mg IM X1 anaphylaxis 03/01/21 [History Last Taken Unknown] mv-mn-iron 22.5 mg-folic ac 400 mcg-vit K 150 [id number] chew tablet (Advanced Multi EA) 1 tab PO DAILY #1 TAB 03/04/21 [Rx Last Taken Unknown] benzonatate 100 mg capsule 200 mg (2 x 100 mg) PO TID PRN PRN Cough #20 CAPSULES 09/15/23 [Rx Last Taken Unknown] ondansetron 4 mg disintegrating tablet 4 mg PO Q8H PRN PRN Nausea #7 tabs 09/15/23 [Rx Last Taken Unknown] Allergy/AdvReac Type Severity Reaction Status Date / Time bee venom protein (honey bee) Allergy Anaphylaxis Verified 09/15/23 16:46 aspirin AdvReac PT HAS NO Verified 09/15/23 16:46 SPLEEN Family History Other Diabetes Surgical History H/O splenectomy Social History Smoking Status: Former smoker substance use type: marijuana ROS <CHANDRAKANT Raphael - Last Filed: 09/15/23 20:29> ROS ED Constitutional Constitutional ED: Reports sweats; Denies chills or fever(s) Cardiovascular Cardiovascular: Denies chest pain or palpitations Respiratory/Chest Respiratory/Chest: Reports cough; Denies dyspnea Gastrointestinal Gastrointestinal: Reports diarrhea; Denies abdominal pain, nausea or vomiting Genitourinary Genitourinary ED: Denies dysuria, hematuria or urinary urgency Musculoskeletal Musculoskeletal: Reports other Details: body aches Integumentary Denies rash Neurologic Neurologic: Denies weakness EXAM <Riya Eduardo PA - Last Filed: 09/15/23 20:29> Physical Exam Const Vital Signs: 09/15/23 16:44 09/15/23 16:52 09/15/23 16:46 Temperature 97.8 F 97.8 F Temperature Source Temporal Temporal Pulse Rate 119 H 119 H Respiratory Rate 20 H 20 H Respiratory Effort Short of Breath Respiratory Pattern Normal Blood Pressure 138/92 H 138/92 H Blood Pressure Mean 107 107 Pulse Ox 95 95 Oxygen Delivery Method Room Air Room Air 09/15/23 18:51 Temperature 97.8 F Temperature Source Pulse Rate 119 H Respiratory Rate 20 H Respiratory Effort Respiratory Pattern Blood Pressure 138/92 H Blood Pressure Mean 107 Pulse Ox 95 Oxygen Delivery Method Positive well nourished, well developed and no apparent distress General Appearance ED: well developed HEENT Reports normocephalic, head/scalp atraumatic and TM's clear Tympanic Membrane ED: Yes TM's clear bilateral Mouth ED: Yes moist mucous membranes normal Throat: posterior oropharynx normal, tonsils normal and uvula midline Eyes PERRL and EOMs intact bilaterally Neck full ROM and supple Chest Wall inspection of chest normal Resp normal respiratory effort Resp Narrative: Faint expiratory wheezes in the right lower lung Cardio regular rate and regular rhythm GI soft to palpation, non-tender, non-distended and no masses Back/Spine normal ROM and normal to inspection Extremity normal to inspection and full ROM Neuro oriented x3, CN's II-XII intact bilaterally, moves all extremities, no focal motor deficits and no sensory deficits noted Sensorium / Orientation: awake and alert Psych mental status grossly normal and thought process normal Skin no rashes or lesions noted and no wounds <Dr. Pablo Hyde DO - Last Filed: 09/15/23 19:10> Physical Exam Const Vital Signs: 09/15/23 16:44 09/15/23 16:52 09/15/23 16:46 Temperature 97.8 F 97.8 F Temperature Source Temporal Temporal Pulse Rate 119 H 119 H Respiratory Rate 20 H 20 H Respiratory Effort Short of Breath Respiratory Pattern Normal Blood Pressure 138/92 H 138/92 H Blood Pressure Mean 107 107 Pulse Ox 95 95 Oxygen Delivery Method Room Air Room Air 09/15/23 18:51 Temperature 97.8 F Temperature Source Pulse Rate 119 H Respiratory Rate 20 H Respiratory Effort Respiratory Pattern Blood Pressure 138/92 H Blood Pressure Mean 107 Pulse Ox 95 Oxygen Delivery Method MDM <CHANDRAKANT Raphael - Last Filed: 09/15/23 20:29> [facility] Narrative Medical decision making narrative: Patient presenting with flulike symptoms he has had over the past week. Given he has had diarrhea over this timeframe and not been eating/drinking as much will be given IV fluids and basic labs will be obtained to rule out electrolyte abnormality and CORWIN. Symptoms do sound viral in nature, COVID, influenza, and RSV swab will be obtained. Given the productive cough, chest x-ray obtained to rule out infiltrate and is negative for any acute findings. Labs overall are unremarkable. He does have influenza A but is outside of the window for Tamiflu. He will be given a prescription for Tessalon Perles and Zofran to use as needed. Return instructions given, supportive care measures discussed and he will be discharged home in stable condition. Lab Data Labs: Laboratory Results - last 24 hr 09/15/23 17:10 WBC 8.6 RBC 4.75 Hgb 16.2 Hct 46.8 MCV 98.5 H MCH 34.1 H MCHC 34.6 RDW Std Deviation 44.2 H RDW Coeff of Minerva 12.1 Plt Count 293 MPV 8.9 Immature Gran % (Auto) 0.200 Neut % (Auto) 72.0 H Lymph % (Auto) 14.3 L [place] % (Auto) 13.2 H Eos % (Auto) 0.1 Baso % (Auto) 0.2 Absolute Neuts (auto) 6.2 Absolute Lymphs (auto) 1.23 Nucleated RBC % 0 Sodium 136 Potassium 3.6 Chloride 102 Carbon Dioxide 27.0 Anion Gap 7 BUN 8 Creatinine 0.90 Estim Creat Clear Calc 112.21 Est GFR (MDRD) Af Amer 115 Est GFR (MDRD) Non-Af 95 BUN/Creatinine Ratio 8.9 L Glucose 106 Calcium 9.2 Radiography X-Ray: Read by ED Physician Diagnostic Testing: Clinical Impression(s) from Imaging Studies Chest X-Ray 09/15/23 17:15 IMPRESSION: No radiographic evidence of acute cardiopulmonary disease. Electronically Signed: Davie Velasquez MD at 17:57 EDT , <Dr. Pablo Hyde, DO - Last Filed: 09/15/23 19:10> [facility] Lab Data Labs: Laboratory Results - last 24 hr 09/15/23 17:10 WBC 8.6 RBC 4.75 Hgb 16.2 Hct 46.8 MCV 98.5 H MCH 34.1 H MCHC 34.6 RDW Std Deviation 44.2 H RDW Coeff of [place]erv[place] 12.1 Plt Count 293 MPV 8.9 Immature Gran % (Auto) 0.200 Neut % (Auto) 72.0 H Lymph % (Auto) 14.3 L [place] % (Auto) 13.2 H Eos % (Auto) 0.1 Baso % (Auto) 0.2 Absolute Neuts (auto) 6.2 Absolute Lymphs (auto) 1.23 Nucleated RBC % 0 Sodium 136 Potassium 3.6 Chloride 102 Carbon Dioxide 27.0 Anion Gap 7 BUN 8 Creatinine 0.90 Estim Creat Clear Calc 112.21 Est GFR (MDRD) Af Amer 115 Est GFR (MDRD) Non-Af 95 BUN/Creatinine Ratio 8.9 L Glucose 106 Calcium 9.2 Radiography Diagnostic Testing: Clinical Impression(s) from Imaging Studies Chest X-Ray 09/15/23 17:15 IMPRESSION: No radiographic evidence of acute cardiopulmonary disease. Electronically Signed: Davie Velasquez MD at 17:57 EDT , Treatment and Re-Evaluation :: I have personally performed a face to face assessment of the patient and have reviewed the KAMLA Note. I performed a substantive portion of the visit including all aspects of the following. My allison findings include: History: Patient presents with cough, congestion, and bodyaches that his been getting progressively worse over the past week. Patient states he feels achy all over. Patient states he has had subjective fevers but did not take his temperature at home. Patient admits to a cough but denies any sputum production. Patient admits to some nausea but denies any vomiting. Patient admits to some diarrhea but denies any melena or hematochezia. Exam: Vital signs are stable except for mild tachycardia of 119. Patient is afebrile. Patient is in no acute distress. Oral mucosa is pink and moist. Neck is supple. Trachea is midline. There is no JVD. Heart was regular rate and rhythm. Lungs are clear and equal bilaterally. Abdomen is soft. Bowel sounds are normal. There is mild diffuse tenderness. There is no rebound or guarding noted. Cranial nerves II through XII are intact. There are no focal motor or sensory deficits noted. Medical Decision Making: Differential diagnosis includes viral illness, pneumonia, electrolyte abnormality, and anxiety. Chest x-ray will be obtained to assess for pneumonia. CBC will be obtained to assess for leukocytosis and anemia. Basic metabolic profile will be obtained to assess for electrolyte abnormality and renal function. COVID-19, influenza, and RSV PCR will be obtained to assess for viral infection. PA and lateral chest x-ray was obtained. There are 2 views. On my independent interpretation, lung ayala are clear. There is normal cardiac silhouette. Bony thorax is normal. There is no acute process noted. Radiologist also interpreted the x-ray and agrees. CBC was reviewed and was within normal limits. Basic metabolic profile was reviewed and was within normal limits. COVID-19 PCR was reviewed and was negative. Influenza PCR was reviewed and was positive for influenza A and negative for influenza B. RSV PCR was reviewed and was negative. Patient was advised of his findings. Patient was instructed to drink plenty of fluids. Patient was instructed to follow-up with his primary care physician in 5 to 7 days. Patient was instructed to take Tylenol or i buprofen as needed for any pain or fevers. Patient understood and was agreeable with the plan. All questions were answered. Discharge Plan Triage Chief Complaint: General Illness ED Midlevel Provider: Riya Eduardo ED Provider: Pablo Hyde Dx/Rx/DC Orders Clinical Impression: Influenza A Instructions: The Flu (Influenza) Prescriptions: New benzonatate 100 mg capsule 200 mg PO TID PRN PRN (Reason: Cough) Qty: 20 0RF ondansetron 4 mg tablet,disintegrating 4 mg PO Q8H PRN PRN (Reason: Nausea) Qty: 7 0RF No Action epinephrine 0.3 mg/0.3 mL auto-injector 0.3 mg IM X1 Patient Comments: USE DIRECTED FOR ALLERGIC REACTION Advanced Multi EA 22.5 mg-400 mcg -150 mcg-10 mg tablet,chewable 1 tab PO DAILY Qty: 1 0RF Primary Care Provider: Care Physician,No Primary Referrals: Evan Hilario MD [Non-Staff] - 5-7 Days Activity Restrictions/Additional Instructions: You can take [id number] cold and flu medication as needed, stay well- hydrated, follow-up with your PCP. Disposition Disposition: Home, Self Care Discharge Date/Time: 09/15/23 18:59
--- NOTE | 2023-09-15 17:15 | RAD_ITS ---
EXAM: XR CHEST, 2 VIEWS CLINICAL INDICATION: cough TECHNIQUE: Frontal and lateral views of the chest. COMPARISON: No relevant prior studies available. FINDINGS: LUNGS AND PLEURAL SPACES: Unremarkable. No consolidation or edema. No pneumothorax. No effusion. HEART: Unremarkable. Cardiac silhouette not enlarged. MEDIASTINUM: Central airways and mediastinal contour are unremarkable. BONES/JOINTS: Unremarkable. No acute fracture. SOFT TISSUES: Unremarkable. RAD/Chest PA and Lateral IMPRESSION: No radiographic evidence of acute cardiopulmonary disease. Electronically Signed: Davie Velasquez MD at 17:57 EDT ,
[2023-09-15] MEDS: 0.9% Normal Saline (1000mL) 1,000 ML 999 ML IV (17:16)
[2023-09-15 17:29] LABS: Absolute Lymphocyte Count 1.23 X10^3/uL (0.83-4.51); Absolute Neutrophil Count 6.2 X10^3/uL (2.0-7.7); Basophil# 0.02 X10^3/uL; Basophil% 0.2 % (0-1); Eosinophil# 0.01 X10^3/uL; Eosinophils% 0.1 % (0-5); Hematocrit 46.8 % (40-54); Hemoglobin 16.2 g/dL (13.0-16.5); Lymphocyte # 1.23 X10^3/ul (0.83-4.51); Lymphocyte % 14.3 % (19-41); Mean Corp Hgb Conc 34.6 g/dL (32-36); Mean Corpuscular Hgb 34.1 pg (27.0-32.0); Mean Corpuscular Volume 98.5 fL (80-94); Mean Platelet Vol. 8.9 fl (6.2-12.0); Monocyte# 1.14 X10^3/uL; Monocyte% 13.2 % (0-10); NRBC Flagged by Analyzer 0 % (0-5); Platelet Count 293 K/mm3 (150-450); RBC Distribution Width CV 12.1 % (11.6-14.6); RBC Distribution Width SD 44.2 fl (35.1-43.9); Red Blood Count 4.75 M/mm3 (4.6-6.2); White Blood Count 8.6 K/mm3 (4.4-11.0)
[2023-09-15 17:38] LABS: Anion Gap 7 (5-15); BUN 8 mg/dL (7-18); BUN/Creat Ratio 8.9 RATIO (10-20); Calcium,Total 9.2 mg/dL (8.5-10.1); Chloride 102 mmol/L (98-107); EST Glomerular Filtration Rate 95 mL/min (>60); Est Glom Filt Rate - Afr Amer 115 mL/min (>60); Estimated Creatinine Clearance 112.21 ml/min; Glucose 106 mg/dL (74-106); Potassium 3.6 mmol/L (3.5-5.1); Sodium Level 136 mmol/L (136-145)
[2023-09-15 18:51] VITALS: BP 138/92; PULSE 119; RESP 20; TEMP 36.6; O2SAT 95
== END 2023-09-15 18:59 | disposition home or self-care (01) ==
PROVIDERS: Physician Assistant; Emergency Provider Emergency Medicine; Visit Provider Emergency Medicine
DX: J10.1 Influenza due to other identified influenza virus with other respiratory manifestations (principal); F12.90 Cannabis use, unspecified, uncomplicated; Z87.891 Personal history of nicotine dependence
CPT/HCPCS: 71046; 80048; 85025; 87631; 96360; 96361; 99283; J7030; A4216